=== PATIENT | female | born 1940 | race Caucasian/White ===

== ENCOUNTER 2025-01-21 07:22 | Inpatient (IN) | payer MEDICARE ==
[2025-01-21] VITALS (49 sets, daily range): BP systolic 95–165; BP diastolic 46–109; PULSE 51–86; RESP 12–24; TEMP 36.1–37.2; O2SAT 92–100
[~2025-01-21] VITALS: Ht 162.6 cm; Wt 92.5 kg
[2025-01-21 08:32] LABS: BASOPHILS % 0.7 % (0.0-2.0); DIFFERENTIAL COMMENT 0; EOSINOPHILS % 0.7 % (0.0-5.0); HEMATOCRIT. 22.2 % (36.0-48.0); HEMOGLOBIN. 7.1 g/dL (12.0-16.0); LYMPHOCYTES % 9.1 % (20.0-50.0); MEAN CORPUSCULAR HEMOGLOBIN 23.1 pg (28.0-32.0); MEAN CORPUSCULAR HGB CONC 31.7 g/dL (31.0-37.0); MEAN CORPUSCULAR VOLUME 72.9 fL (81.0-99.0); MEAN PLATELET VOLUME 11.2 fl (7.4-10.4); NEUTROPHILS % 81.5 % (40.0-76.0); PLATELET 226 x1000/uL (130-400); RED BLOOD CELL COUNT 3.05 mill/uL (4.2-5.4); RED CELL DISTRIBUTION WIDTH 18.2 % (11.6-14.6); WHITE BLOOD COUNT 7.5 x1000/uL (4.5-11.0)
[2025-01-21 08:35] LABS: CARBON DIOXIDE 22 mEq/L (21-32); CHLORIDE 110 mEq/L (98-107); POTASSIUM 3.8 mEq/L (3.5-5.1); SODIUM 141 mEq/L (136-145)
[2025-01-21 08:36] LABS: CALCIUM 8.3 mg/dL (8.7-10.4)
[2025-01-21 08:40] LABS: CREATININE 0.7 mg/dL (0.6-1.0)
[2025-01-21 08:41] LABS: GLUCOSE 139 mg/dL (70-105); TROPONIN I HIGH SENSITIVITY 15 ng/L (3.0-34); UREA NITROGEN BLOOD 19 mg/dL (9-23)
[2025-01-21 08:42] LABS: ALANINE AMINOTRANSFERASE 30 IU/L (10-49); ALBUMIN 3.7 g/dL (3.2-4.8); ASPARTATE AMINOTRANSFERASE 39 IU/L (<34)
[2025-01-21 08:43] LABS: BILIRUBIN DIRECT 0.3 mg/dL (<=3.0); PROTEIN TOTAL 6.2 g/dL (6.0-8.3)
[2025-01-21] MEDS ORDERED: THROMBIN (BOVINE) 5000 UNITS/VIAL TOP ONE (10:28)
[2025-01-21] MEDS ORDERED: GENTAMICIN 0.3% OPHTH DROPS 5ML ONE (10:29)
[2025-01-21] MEDS ORDERED: GENTAMICIN SULF 40MG/ML 2ML VIAL ONE (10:29)
[2025-01-21] MEDS ORDERED: LIDOCAINE HCL/EPINEPHRINE 1%-EPI 1:100,000 20ML VIAL ONE (10:29)
[2025-01-21] MEDS ORDERED: BACITRACIN 14GM TUBE TOP ONE (10:29)
[2025-01-21] MEDS ORDERED: DEXAMETHASONE 4MG/ML 1ML VIAL ONE (11:21)
[2025-01-21] MEDS ORDERED: ONDANSETRON HCL 4MG/2ML INJ ONE (11:21)
[2025-01-21] MEDS ORDERED: ETOMIDATE 2MG/ML 10ML VIAL IV ONE (11:21)
[2025-01-21] MEDS ORDERED: ROCURONIUM BROMIDE 10MG/ML VIAL 5ML IV ONE (11:22)
[2025-01-21] MEDS ORDERED: FENTANYL CITRATE/PF 50MCG/ML 2ML VIAL ONE (11:22)
[2025-01-21] MEDS ORDERED: MIDAZOLAM HCL 2 MG/2 ML VIAL ONE ×2 (11:22→11:23)
[2025-01-21] MEDS ORDERED: PROPOFOL 200MG/20ML VIAL IV ONE (11:58)
[2025-01-21 12:14] LABS: INFLUENZA TYPE A Presumptive Negative (Pres. Neg.)
[2025-01-21 12:15] LABS: INFLUENZA TYPE B Presumptive Negative (Pres. Neg.)
[2025-01-21] MEDS ORDERED: NICARDIPINE 100 MG in SODIUM CHLORIDE 0.9% 60 ML IV PRN (13:00)
[2025-01-21] MEDS ORDERED: ACETAMINOPHEN 325MG TABLET PO PRN ×2 (13:15)
[2025-01-21] MEDS ORDERED: NALOXONE HCL 0.4MG/ML VIAL IV PRN (13:15)
[2025-01-21] MEDS ORDERED: IPRATROPIUM/ALBUTEROL 0.5-3(2.5)MG/3ML NEB HHN PRN (13:15)
[2025-01-21] MEDS ORDERED: ONDANSETRON HCL 4MG/2ML INJ IV PRN (13:15)
[2025-01-21] MEDS ORDERED: DOCUSATE SODIUM 100MG CAPSULE PO PRN (13:15)
[2025-01-21] MEDS: MORPHINE SULFATE 2 MG/ML INJ (NOT FOR IM USE) IV PRN (13:35)
[2025-01-21] MEDS: DEXT 5%/LACTATED RINGERS 1,000 ML IV SCH (14:28)
[2025-01-21 15:02] LABS: IRON 19 ug/dL (50-170)
[2025-01-21 15:05] LABS: TOTAL IRON BINDING CAPACITY 261 ug/dl (250-425)
[2025-01-21 15:07] LABS: T4 FREE 1.48 ng/dL (0.89-1.76)
[2025-01-21 15:08] LABS: FERRITIN 6 ng/mL (10-291); VITAMIN B12 SERUM 1231 pg/mL (211-911)
[2025-01-21 16:46] LABS: CREATINE KINASE MB FRACTION 2.6 ng/mL (0.5-3.6)
[2025-01-21] MEDS: NICARDIPINE 100 MG in SODIUM CHLORIDE 0.9% 60 ML IV PRN (16:56)
[2025-01-21] MEDS: CEFAZOLIN 1000MG PREMIX 50 ML IV SCH (20:34)
[2025-01-21] MEDS: LEVETIRACETAM 500MG PREMIX 100 ML IV SCH (20:34)
[2025-01-21] MEDS: ATORVASTATIN CALCIUM 40MG TABLET PO SCH (20:35)
[2025-01-21 21:22] LABS: HEMATOCRIT 23.2 % (36.0-48.0); HEMOGLOBIN 7.4 g/dL (12.0-16.0)
[2025-01-21 22:26] LABS: CREATINE KINASE MB FRACTION 3.1 ng/mL (0.5-3.6)
[2025-01-22] VITALS (104 sets, daily range): BP systolic 111–151; BP diastolic 42–109; PULSE 45–78; RESP 11–31; TEMP 36.7–37.3; O2SAT 93–99
[2025-01-22] MEDS: LEVOTHYROXINE SODIUM 100MCG TABLET PO SCH (05:39)
[2025-01-22 06:30] LABS: CHLORIDE 111 mEq/L (98-107); POTASSIUM 4.2 mEq/L (3.5-5.1); SODIUM 142 mEq/L (136-145)
[2025-01-22 06:31] LABS: CALCIUM 8.1 mg/dL (8.7-10.4); CARBON DIOXIDE 24 mEq/L (21-32)
[2025-01-22 06:36] LABS: CREATININE 0.7 mg/dL (0.6-1.0); GLUCOSE 153 mg/dL (70-105); UREA NITROGEN BLOOD 16 mg/dL (9-23)
[2025-01-22 06:56] LABS: HEMATOCRIT 21.8 % (36.0-48.0); MEAN CORPUSCULAR HEMOGLOBIN 22.8 pg (28.0-32.0); MEAN CORPUSCULAR HGB CONC 31.1 g/dL (31.0-37.0); MEAN CORPUSCULAR VOLUME 73.2 fL (81.0-99.0); PLATELET 213 x1000/uL (130-400); RED BLOOD CELL COUNT 2.97 mill/uL (4.2-5.4); RED CELL DISTRIBUTION WIDTH 18.7 % (11.6-14.6)
[2025-01-22 07:02] LABS: HEMOGLOBIN 6.8 g/dL (12.0-16.0)
[2025-01-22] MEDS: AMLODIPINE 10MG TABLET PO SCH (09:00)
[2025-01-22] MEDS: LOSARTAN 50 MG TABLET PO SCH (09:00)
[2025-01-22] MEDS: PANTOPRAZOLE SODIUM 40 MG/VIAL IV SCH (09:17)
[2025-01-22] MEDS ORDERED: DEXTROSE 50% WATER 50ML SYRINGE IV PRN (13:15)
[2025-01-22] MEDS: CEFAZOLIN 1000MG PREMIX 50 ML IV SCH (15:26)
[2025-01-22 19:20] LABS: HEMATOCRIT 26.2 % (36.0-48.0); HEMOGLOBIN 8.1 g/dL (12.0-16.0); MEAN CORPUSCULAR HEMOGLOBIN 23.4 pg (28.0-32.0); MEAN CORPUSCULAR HGB CONC 30.7 g/dL (31.0-37.0); MEAN CORPUSCULAR VOLUME 76.1 fL (81.0-99.0); PLATELET 270 x1000/uL (130-400); RED BLOOD CELL COUNT 3.45 mill/uL (4.2-5.4); RED CELL DISTRIBUTION WIDTH 19.3 % (11.6-14.6); WHITE BLOOD COUNT 10.3 x1000/uL (4.5-11.0)
[2025-01-23] VITALS (82 sets, daily range): BP systolic 77–157; BP diastolic 40–127; PULSE 50–91; RESP 12–24; TEMP 36.2–36.8; O2SAT 89–100
[2025-01-23] MEDS ORDERED: ACETAMINOPHEN 650MG SUPP PR PRN (09:00)
[2025-01-23] MEDS ORDERED: BACITRACIN 14GM TUBE TOP ONE (09:31)
[2025-01-23] MEDS ORDERED: THROMBIN (BOVINE) 5000 UNITS/VIAL TOP ONE (09:31)
[2025-01-23] MEDS ORDERED: LIDOCAINE HCL/EPINEPHRINE 1%-EPI 1:100,000 20ML VIAL ONE (09:31)
[2025-01-23] MEDS ORDERED: GENTAMICIN SULF 40MG/ML 2ML VIAL ONE (09:32)
[2025-01-23 09:35] LABS: CHLORIDE 111 mEq/L (98-107); POTASSIUM 3.9 mEq/L (3.5-5.1); SODIUM 144 mEq/L (136-145)
[2025-01-23 09:36] LABS: CALCIUM 7.8 mg/dL (8.7-10.4); CARBON DIOXIDE 25 mEq/L (21-32)
[2025-01-23 09:40] LABS: HEMATOCRIT 24.3 % (36.0-48.0); HEMOGLOBIN 7.8 g/dL (12.0-16.0); MEAN CORPUSCULAR HGB CONC 32.1 g/dL (31.0-37.0); MEAN CORPUSCULAR VOLUME 74.6 fL (81.0-99.0); PLATELET 212 x1000/uL (130-400); RED BLOOD CELL COUNT 3.26 mill/uL (4.2-5.4); RED CELL DISTRIBUTION WIDTH 19.2 % (11.6-14.6); WHITE BLOOD COUNT 10.4 x1000/uL (4.5-11.0)
[2025-01-23 09:41] LABS: CREATININE 0.8 mg/dL (0.6-1.0); GLUCOSE 152 mg/dL (70-105); UREA NITROGEN BLOOD 20 mg/dL (9-23)
[2025-01-23 09:43] LABS: ALANINE AMINOTRANSFERASE 186 IU/L (10-49); ALBUMIN 3.6 g/dL (3.2-4.8); ASPARTATE AMINOTRANSFERASE 388 IU/L (<34); BILIRUBIN TOTAL 1.3 mg/dL (0.1-1.0)
[2025-01-23 09:44] LABS: PROTEIN TOTAL 5.9 g/dL (6.0-8.3)
[2025-01-23] MEDS ORDERED: DEXTROSE 50% WATER 50ML SYRINGE IV PRN (09:45)
[2025-01-23] MEDS ORDERED: FENTANYL CITRATE/PF 50MCG/ML 2ML VIAL ONE ×2 (10:26→11:15)
[2025-01-23] MEDS ORDERED: PROPOFOL 200MG/20ML VIAL IV ONE (10:26)
[2025-01-23] MEDS ORDERED: MIDAZOLAM HCL 2 MG/2 ML VIAL ONE ×2 (10:27→11:15)
[2025-01-23] MEDS: BLOOD SUGAR DIAGNOSTIC STRIP TEST SCH (12:00)
[2025-01-23] MEDS: INSULIN LISPRO 100 UNITS/ML SUBCUT SCH (12:43)
[2025-01-23] MEDS: LIDOCAINE HCL 1% 10 MG/ML 10ML VIAL ONE (12:59)
[2025-01-24] VITALS (101 sets, daily range): BP systolic 95–173; BP diastolic 27–130; PULSE 57–104; RESP 16–29; TEMP 36.8–37.4; O2SAT 82–100
[2025-01-24] MEDS: LABETALOL 5MG/ML 4ML INJ IV NR (01:54)
[2025-01-24 06:12] LABS: CHLORIDE 112 mEq/L (98-107); SODIUM 145 mEq/L (136-145)
[2025-01-24 06:13] LABS: CALCIUM 7.9 mg/dL (8.7-10.4); CARBON DIOXIDE 21 mEq/L (21-32)
[2025-01-24 06:16] LABS: HEMATOCRIT 22.9 % (36.0-48.0); HEMOGLOBIN 7.2 g/dL (12.0-16.0); MEAN CORPUSCULAR HEMOGLOBIN 23.4 pg (28.0-32.0); MEAN CORPUSCULAR HGB CONC 31.7 g/dL (31.0-37.0); MEAN CORPUSCULAR VOLUME 73.8 fL (81.0-99.0); PLATELET 230 x1000/uL (130-400); RED CELL DISTRIBUTION WIDTH 19.5 % (11.6-14.6); WHITE BLOOD COUNT 10.2 x1000/uL (4.5-11.0)
[2025-01-24 06:18] LABS: CREATININE 0.9 mg/dL (0.6-1.0); GLUCOSE 132 mg/dL (70-105); UREA NITROGEN BLOOD 24 mg/dL (9-23)
[2025-01-24 06:20] LABS: ALANINE AMINOTRANSFERASE 152 IU/L (10-49); ALBUMIN 3.6 g/dL (3.2-4.8); ASPARTATE AMINOTRANSFERASE 236 IU/L (<34); BILIRUBIN TOTAL 1.2 mg/dL (0.1-1.0)
[2025-01-24 06:21] LABS: PROTEIN TOTAL 6.1 g/dL (6.0-8.3)
[2025-01-24 08:56] LABS: BG DEOXYHEMOGLOBIN 4.2 % (0.0-5.0); BG FRACTION INSPIRED OXYGEN 21; BG HCO3 ACT 18.2 mmol/L (21.0-28.0); BG METHEMOGLOBIN 0.3 % (0.5-1.5); BG OXYGEN SATURATION 95.7 % (94.0-98.0); BG OXYHEMOGLOBIN 94.5 % (94.0-98.0); BG PCO2 23.3 mmHg (32.0-45.0); BG PH 7.511 (7.350-7.450); BG PO2 75.4 mmHg (83.0-108.0); BG SAMPLE SITE RIGHT RADIAL; BG TOTAL HEMOGLOBIN 7.7 g/dL (12.0-16.0); BG VENT MODE ROOM AIR
[2025-01-24] MEDS: HYDRALAZINE 20MG/ML VIAL IV PRN (09:12)
[2025-01-24] MEDS: DEXAMETHASONE 4MG/ML 1ML VIAL IV SCH (09:34)
[2025-01-24] MEDS: IPRATROPIUM/ALBUTEROL 0.5-3(2.5)MG/3ML NEB HHN SCH (12:24)
[2025-01-24] MEDS: HYDRALAZINE 20MG/ML VIAL IV NR (12:26)
[2025-01-24] MEDS ORDERED: LABETALOL 5MG/ML 4ML INJ IV NR (13:15)
[2025-01-24] MEDS: LABETALOL 5MG/ML 4ML INJ IV PRN (15:30)
[2025-01-25] VITALS (112 sets, daily range): BP systolic 89–142; BP diastolic 40–99; PULSE 49–82; RESP 12–28; TEMP 36.6696–37.33632; O2SAT 96–100
[2025-01-25 05:53] LABS: HEMATOCRIT. 21.4 % (36.0-48.0); MEAN CORPUSCULAR HEMOGLOBIN 23.7 pg (28.0-32.0); MEAN CORPUSCULAR HGB CONC 32.6 g/dL (31.0-37.0); MEAN CORPUSCULAR VOLUME 72.7 fL (81.0-99.0); MEAN PLATELET VOLUME 11.9 fl (7.4-10.4); PLATELET 227 x1000/uL (130-400); RED BLOOD CELL COUNT 2.95 mill/uL (4.2-5.4); RED CELL DISTRIBUTION WIDTH 19.2 % (11.6-14.6); WHITE BLOOD COUNT 9.2 x1000/uL (4.5-11.0)
[2025-01-25 06:09] LABS: CALCIUM 7.4 mg/dL (8.7-10.4)
[2025-01-25 06:15] LABS: CREATININE 1.5 mg/dL (0.6-1.0)
[2025-01-25 06:52] LABS: DIFFERENTIAL COMMENT 1
[2025-01-25] MEDS ORDERED: PROPOFOL 10MG/ML 100ML 100 ML IV SCH (09:00)
[2025-01-25 10:16] LABS: BG BASE EXCESS -3.9 mmol/L (-2.0-3.0); BG CARBOXYHEMOGLOBIN 0.8 % (0.5-1.5); BG DEOXYHEMOGLOBIN 2.5 % (0.0-5.0); BG FRACTION INSPIRED OXYGEN 40; BG HCO3 ACT 18.5 mmol/L (21.0-28.0); BG METHEMOGLOBIN 0.2 % (0.5-1.5); BG OXYGEN SATURATION 97.5 % (94.0-98.0); BG OXYHEMOGLOBIN 96.5 % (94.0-98.0); BG PCO2 24.2 mmHg (32.0-45.0); BG PH 7.501 (7.350-7.450); BG SAMPLE SITE RIGHT RADIAL; BG TOTAL HEMOGLOBIN 7.9 g/dL (12.0-16.0); BG VENT MODE VENT - AC
[2025-01-25] MEDS: INSULIN LISPRO 100 UNITS/ML SUBCUT SCH (12:11)
[2025-01-25] MEDS ORDERED: ACETAMINOPHEN 650MG SUPP PR PRN (17:30)
[2025-01-25 17:43] LABS: HEMATOCRIT 25.1 % (36.0-48.0)
[2025-01-25] MEDS: DEXAMETHASONE 4MG/ML 1ML VIAL IV SCH (17:56)
[2025-01-25 22:04] LABS: CLARITY URINE CLOUDY (CLEAR); COLOR URINE DARK YELLOW (YELLOW); GLUCOSE URINE NEGATIVE (NEGATIVE); KETONES URINE TRACE (NEGATIVE); LEUKOCYTE ESTERASE URINE 1+ (NEGATIVE); NITRITE URINE NEGATIVE (NEGATIVE); OCCULT BLOOD URINE NEGATIVE (NEGATIVE); PROTEIN URINE TRACE (NEGATIVE); SPECIFIC GRAVITY URINE 1.019 (1.005-1.030); UROBILINOGEN URINE 0.2 E.U./dL (0.2-1.0)
[2025-01-25 22:27] LABS: BACTERIA URINE 2+
[2025-01-25 22:28] LABS: RBC URINE 0-2 /hpf (0-2); SQUAMOUS EPITHELIAL CELL URINE 1+ /lpf (RARE/1+)
[2025-01-26] VITALS (93 sets, daily range): BP systolic 100–150; BP diastolic 40–108; PULSE 48–88; RESP 9–24; TEMP 36.2–37.2; O2SAT 97–100
[2025-01-26 09:23] LABS: CHLORIDE 116 mEq/L (98-107); SODIUM 146 mEq/L (136-145)
[2025-01-26 09:24] LABS: CALCIUM 6.9 mg/dL (8.7-10.4); CARBON DIOXIDE 17 mEq/L (21-32)
[2025-01-26 09:27] LABS: BG BASE EXCESS -4.2 mmol/L (-2.0-3.0); BG CARBOXYHEMOGLOBIN 0.4 % (0.5-1.5); BG DEOXYHEMOGLOBIN 1.9 % (0.0-5.0); BG FRACTION INSPIRED OXYGEN 30; BG HCO3 ACT 18.4 mmol/L (21.0-28.0); BG METHEMOGLOBIN 0.1 % (0.5-1.5); BG OXYGEN SATURATION 98.1 % (94.0-98.0); BG OXYHEMOGLOBIN 97.6 % (94.0-98.0); BG PCO2 25.5 mmHg (32.0-45.0); BG PH 7.476 (7.350-7.450); BG PO2 108.9 mmHg (83.0-108.0); BG SAMPLE SITE RIGHT RADIAL; BG TOTAL HEMOGLOBIN 9.3 g/dL (12.0-16.0); BG VENT MODE VENT - AC
[2025-01-26 09:29] LABS: CREATININE 1.6 mg/dL (0.6-1.0); GLUCOSE 244 mg/dL (70-105); UREA NITROGEN BLOOD 51 mg/dL (9-23)
[2025-01-26 09:31] LABS: ALANINE AMINOTRANSFERASE 27 IU/L (10-49); ALBUMIN 3.1 g/dL (3.2-4.8); ASPARTATE AMINOTRANSFERASE 99 IU/L (<34); BILIRUBIN TOTAL 1.4 mg/dL (0.1-1.0); PROTEIN TOTAL 5.3 g/dL (6.0-8.3)
[2025-01-26 11:37] LABS: HEMATOCRIT 26.7 % (36.0-48.0); HEMOGLOBIN 8.2 g/dL (12.0-16.0); MEAN CORPUSCULAR HEMOGLOBIN 23.9 pg (28.0-32.0); MEAN CORPUSCULAR HGB CONC 30.9 g/dL (31.0-37.0); MEAN CORPUSCULAR VOLUME 77.5 fL (81.0-99.0); PLATELET 216 x1000/uL (130-400); RED BLOOD CELL COUNT 3.45 mill/uL (4.2-5.4); RED CELL DISTRIBUTION WIDTH 20.4 % (11.6-14.6); WHITE BLOOD COUNT 12.5 x1000/uL (4.5-11.0)
[2025-01-26 13:38] LABS: ANISOCYTOSIS 2+; HYPOCHROMASIA 1+; MICROCYTOSIS 1+; NUCLEATED RED BLOOD CELLS 1 /100 WBC; PLATELET ESTIMATE NORMAL
[2025-01-26] MEDS: INSULIN LISPRO 100 UNITS/ML SUBCUT SCH (23:35)
[2025-01-27] VITALS (104 sets, daily range): BP systolic 102–149; BP diastolic 43–83; PULSE 44–74; RESP 5–27; TEMP 36.8–37.2; O2SAT 96–100
[2025-01-27] MEDS ORDERED: DEXTROSE 50% WATER 50ML SYRINGE IV PRN (07:45)
[2025-01-27 09:06] LABS: HEMATOCRIT. 28.4 % (36.0-48.0); HEMOGLOBIN. 8.9 g/dL (12.0-16.0); MEAN CORPUSCULAR HEMOGLOBIN 23.6 pg (28.0-32.0); MEAN CORPUSCULAR HGB CONC 31.4 g/dL (31.0-37.0); MEAN CORPUSCULAR VOLUME 75.3 fL (81.0-99.0); MEAN PLATELET VOLUME 11.7 fl (7.4-10.4); PLATELET 253 x1000/uL (130-400); RED BLOOD CELL COUNT 3.77 mill/uL (4.2-5.4); RED CELL DISTRIBUTION WIDTH 20.3 % (11.6-14.6); WHITE BLOOD COUNT 16.4 x1000/uL (4.5-11.0)
[2025-01-27 09:11] LABS: CHLORIDE 118 mEq/L (98-107); SODIUM 148 mEq/L (136-145)
[2025-01-27 09:12] LABS: CARBON DIOXIDE 20 mEq/L (21-32)
[2025-01-27 09:13] LABS: CALCIUM 6.7 mg/dL (8.7-10.4)
[2025-01-27 09:15] LABS: DIFFERENTIAL COMMENT 1
[2025-01-27 09:17] LABS: GLUCOSE 230 mg/dL (70-105); UREA NITROGEN BLOOD 54 mg/dL (9-23)
[2025-01-27 09:19] LABS: ALANINE AMINOTRANSFERASE 21 IU/L (10-49); ALBUMIN 3.1 g/dL (3.2-4.8); ASPARTATE AMINOTRANSFERASE 60 IU/L (<34)
[2025-01-27 09:20] LABS: BILIRUBIN TOTAL 1.2 mg/dL (0.1-1.0); PROTEIN TOTAL 5.3 g/dL (6.0-8.3)
[2025-01-27 09:38] LABS: CREATININE 1.3 mg/dL (0.6-1.0)
[2025-01-27 09:48] LABS: ANISOCYTOSIS 2+; MICROCYTOSIS 1+; PLATELET ESTIMATE NORMAL
[2025-01-27 09:56] LABS: BG BASE EXCESS -4.2 mmol/L (-2.0-3.0); BG CARBOXYHEMOGLOBIN 0.2 % (0.5-1.5); BG DEOXYHEMOGLOBIN 2.3 % (0.0-5.0); BG FRACTION INSPIRED OXYGEN 30; BG HCO3 ACT 18.6 mmol/L (21.0-28.0); BG METHEMOGLOBIN 0.3 % (0.5-1.5); BG OXYGEN SATURATION 97.7 % (94.0-98.0); BG OXYHEMOGLOBIN 97.2 % (94.0-98.0); BG PCO2 26.2 mmHg (32.0-45.0); BG PH 7.469 (7.350-7.450); BG SAMPLE SITE RIGHT RADIAL; BG TOTAL HEMOGLOBIN 8.9 g/dL (12.0-16.0); BG VENT MODE VENT - AC
[2025-01-27] MEDS: INSULIN LISPRO 100 UNITS/ML SUBCUT SCH (12:08)
[2025-01-27 18:00] LABS: CLARITY URINE CLEAR (CLEAR); COLOR URINE YELLOW (YELLOW); GLUCOSE URINE NEGATIVE (NEGATIVE); KETONES URINE NEGATIVE (NEGATIVE); LEUKOCYTE ESTERASE URINE NEGATIVE (NEGATIVE); NITRITE URINE NEGATIVE (NEGATIVE); OCCULT BLOOD URINE NEGATIVE (NEGATIVE); PH URINE 5.5 (4.5-8.0); PROTEIN URINE NEGATIVE (NEGATIVE); SPECIFIC GRAVITY URINE 1.016 (1.005-1.030); UROBILINOGEN URINE 0.2 E.U./dL (0.2-1.0)
[2025-01-28] VITALS (72 sets, daily range): BP systolic 79–146; BP diastolic 49–88; PULSE 46–65; RESP 10–33; TEMP 36.7–36.9; O2SAT 97–100
[2025-01-28] MEDS: DOCUSATE SODIUM SUGAR FREE 100MG/10ML UDC NG PRN (06:39)
[2025-01-28] MEDS: SODIUM CHLORIDE 10% FOR INH 15ML NEB INH SCH (09:05)
[2025-01-28 09:44] LABS: BG BASE EXCESS -3.7 mmol/L (-2.0-3.0); BG CARBOXYHEMOGLOBIN 0.3 % (0.5-1.5); BG DEOXYHEMOGLOBIN 1.7 % (0.0-5.0); BG FRACTION INSPIRED OXYGEN 30; BG HCO3 ACT 18.8 mmol/L (21.0-28.0); BG OXYGEN SATURATION 98.3 % (94.0-98.0); BG PCO2 25.5 mmHg (32.0-45.0); BG PH 7.485 (7.350-7.450); BG PO2 115.5 mmHg (83.0-108.0); BG SAMPLE SITE RIGHT RADIAL; BG TOTAL HEMOGLOBIN 9.3 g/dL (12.0-16.0); BG TOTAL RESPIRATORY RATE 18 b/min; BG VENT MODE VENT - AC
[2025-01-28 11:26] LABS: HEMATOCRIT 28.4 % (36.0-48.0); HEMOGLOBIN 8.8 g/dL (12.0-16.0); MEAN CORPUSCULAR HEMOGLOBIN 23.7 pg (28.0-32.0); MEAN CORPUSCULAR HGB CONC 30.9 g/dL (31.0-37.0); MEAN CORPUSCULAR VOLUME 76.7 fL (81.0-99.0); PLATELET 233 x1000/uL (130-400); RED CELL DISTRIBUTION WIDTH 20.6 % (11.6-14.6); WHITE BLOOD COUNT 17.2 x1000/uL (4.5-11.0)
[2025-01-28 11:43] LABS: POTASSIUM 3.9 mEq/L (3.5-5.1)
[2025-01-28 11:45] LABS: CALCIUM 6.9 mg/dL (8.7-10.4)
[2025-01-28] MEDS: PIPERACILLIN/TAZO 3.375G/50ML 50 ML IV SCH (15:30)
[2025-01-29] VITALS (94 sets, daily range): BP systolic 110–146; BP diastolic 27–70; PULSE 55–75; RESP 10–32; TEMP 36.6–37.1; O2SAT 98–100
[2025-01-29 06:10] LABS: HEMATOCRIT. 33.9 % (36.0-48.0); HEMOGLOBIN. 10.3 g/dL (12.0-16.0); MEAN CORPUSCULAR HEMOGLOBIN 23.8 pg (28.0-32.0); MEAN CORPUSCULAR HGB CONC 30.5 g/dL (31.0-37.0); MEAN CORPUSCULAR VOLUME 78.2 fL (81.0-99.0); MEAN PLATELET VOLUME 11.6 fl (7.4-10.4); PLATELET 228 x1000/uL (130-400); RED BLOOD CELL COUNT 4.34 mill/uL (4.2-5.4); RED CELL DISTRIBUTION WIDTH 21.4 % (11.6-14.6); WHITE BLOOD COUNT 23.7 x1000/uL (4.5-11.0)
[2025-01-29 06:50] LABS: CALCIUM 7.1 mg/dL (8.7-10.4); POTASSIUM 4.1 mEq/L (3.5-5.1)
[2025-01-29 07:12] LABS: DIFFERENTIAL COMMENT 1
[2025-01-29] MEDS: GUAIFENESIN 200MG/10ML SUGAR FREE UDC PO SCH (12:48)
[2025-01-29 19:49] LABS: ANISOCYTOSIS 2+; HYPOCHROMASIA 1+; MICROCYTOSIS 1+; PLATELET ESTIMATE NORMAL
[2025-01-30] VITALS (81 sets, daily range): BP systolic 113–154; BP diastolic 42–78; PULSE 55–79; RESP 0–26; TEMP 36.6–37.3; O2SAT 98–100
[2025-01-30 05:20] LABS: HEMATOCRIT. 33.4 % (36.0-48.0); HEMOGLOBIN. 9.9 g/dL (12.0-16.0); MEAN CORPUSCULAR HEMOGLOBIN 24.2 pg (28.0-32.0); MEAN CORPUSCULAR HGB CONC 29.5 g/dL (31.0-37.0); MEAN PLATELET VOLUME 12.5 fl (7.4-10.4); PLATELET 121 x1000/uL (130-400); RED BLOOD CELL COUNT 4.08 mill/uL (4.2-5.4)
[2025-01-30 05:49] LABS: CHLORIDE 118 mEq/L (98-107); POTASSIUM 3.8 mEq/L (3.5-5.1); SODIUM 150 mEq/L (136-145)
[2025-01-30 05:51] LABS: CARBON DIOXIDE 20 mEq/L (21-32)
[2025-01-30 05:52] LABS: CALCIUM 7.5 mg/dL (8.7-10.4)
[2025-01-30 05:56] LABS: CREATININE 1.1 mg/dL (0.6-1.0); GLUCOSE 248 mg/dL (70-105)
[2025-01-30 05:57] LABS: ALANINE AMINOTRANSFERASE 21 IU/L (10-49); UREA NITROGEN BLOOD 37 mg/dL (9-23)
[2025-01-30 05:58] LABS: ALBUMIN 2.8 g/dL (3.2-4.8); ASPARTATE AMINOTRANSFERASE 44 IU/L (<34)
[2025-01-30 05:59] LABS: BILIRUBIN TOTAL 0.9 mg/dL (0.1-1.0); PHOSPHORUS 2.7 mg/dL (2.5-4.9)
[2025-01-30 06:22] LABS: DIFFERENTIAL COMMENT 1
[2025-01-30 09:27] LABS: BG BASE EXCESS -3.1 mmol/L (-2.0-3.0); BG CARBOXYHEMOGLOBIN 0.2 % (0.5-1.5); BG DEOXYHEMOGLOBIN 1.4 % (0.0-5.0); BG FRACTION INSPIRED OXYGEN 30; BG HCO3 ACT 18.9 mmol/L (21.0-28.0); BG METHEMOGLOBIN 0.3 % (0.5-1.5); BG OXYGEN SATURATION 98.6 % (94.0-98.0); BG OXYHEMOGLOBIN 98.1 % (94.0-98.0); BG PCO2 24.6 mmHg (32.0-45.0); BG PH 7.504 (7.350-7.450); BG PO2 128.8 mmHg (83.0-108.0); BG SAMPLE SITE LEFT RADIAL; BG TOTAL RESPIRATORY RATE 24 b/min; BG VENT MODE VENT - AC
[2025-01-30] MEDS: CALCIUM 1250MG TABLET (500MG ELEMENTAL CALCIUM) PO SCH (09:30)
[2025-01-30] MEDS: MEROPENEM 1GM/50ML DUPLEX 50 ML IV SCH (09:48)
[2025-01-30] MEDS ORDERED: MEROPENEM 1G/100ML 100 ML IV SCH (14:00)
[2025-01-30 14:23] LABS: ANISOCYTOSIS 2+; PLATELET ESTIMATE NORMAL
[2025-01-30] MEDS: VANCOMYCIN 1.5GM/250ML IV NR (17:16)
[2025-01-30] MEDS: INSULIN GLARGINE 100 UNITS/ML SUBCUT SCH (21:23)
[2025-01-30] MEDS: MEROPENEM 2,000 MG in SODIUM CHLORIDE 0.9% 60 ML IV SCH (21:47)
[2025-01-31] VITALS (88 sets, daily range): BP systolic 81–168; BP diastolic 46–82; PULSE 49–87; RESP 0–26; TEMP 35.9–37.1; O2SAT 89–100
[2025-01-31] MEDS: VANCOMYCIN 125MG/2.5ML ORAL SYR PO SCH (05:46)
[2025-01-31 06:29] LABS: POTASSIUM 3.9 mEq/L (3.5-5.1)
[2025-01-31 06:31] LABS: CALCIUM 7.4 mg/dL (8.7-10.4)
[2025-01-31 06:35] LABS: CREATININE 0.9 mg/dL (0.6-1.0)
[2025-01-31 06:45] LABS: HEMATOCRIT. 29.6 % (36.0-48.0); HEMOGLOBIN. 9.2 g/dL (12.0-16.0); MEAN CORPUSCULAR HEMOGLOBIN 24.2 pg (28.0-32.0); MEAN CORPUSCULAR HGB CONC 30.9 g/dL (31.0-37.0); MEAN CORPUSCULAR VOLUME 78.2 fL (81.0-99.0); MEAN PLATELET VOLUME 12.1 fl (7.4-10.4); PLATELET 200 x1000/uL (130-400); RED BLOOD CELL COUNT 3.79 mill/uL (4.2-5.4); RED CELL DISTRIBUTION WIDTH 21.3 % (11.6-14.6); WHITE BLOOD COUNT 20.2 x1000/uL (4.5-11.0)
[2025-01-31 06:57] LABS: DIFFERENTIAL COMMENT 1
[2025-01-31 09:25] LABS: BG CARBOXYHEMOGLOBIN 0.3 % (0.5-1.5); BG DEOXYHEMOGLOBIN 0.7 % (0.0-5.0); BG FRACTION INSPIRED OXYGEN 40; BG HCO3 ACT 21.7 mmol/L (21.0-28.0); BG METHEMOGLOBIN 0.3 % (0.5-1.5); BG OXYGEN SATURATION 99.3 % (94.0-98.0); BG OXYHEMOGLOBIN 98.7 % (94.0-98.0); BG PCO2 28.8 mmHg (32.0-45.0); BG PH 7.495 (7.350-7.450); BG PO2 158.9 mmHg (83.0-108.0); BG SAMPLE SITE LEFT RADIAL; BG TOTAL HEMOGLOBIN 9.1 g/dL (12.0-16.0); BG VENT MODE VENT - SIMV
[2025-01-31] MEDS ORDERED: LIDOCAINE HCL/EPINEPHRINE 1%-EPI 1:100,000 20ML VIAL ONE (11:41)
[2025-01-31 13:24] LABS: ANISOCYTOSIS 3+; HYPOCHROMASIA 1+; MICROCYTOSIS 1+
[2025-01-31 13:25] LABS: PLATELET ESTIMATE NORMAL
[2025-01-31] MEDS ORDERED: NOREPINEPHRINE 8MG/250ML PMX 250 ML IV PRN (14:00)
[2025-01-31] MEDS: VANCOMYCIN 750MG/150ML (BAXTER) IV SCH (14:39)
[2025-01-31] MEDS ORDERED: ACETAMINOPHEN 650MG/20.3ML UDC PO PRN (20:45)
[2025-01-31] MEDS: MORPHINE SULFATE 4 MG/ML INJ (FOR IV/IM USE) IV PRN (21:06)
[2025-02-01] VITALS (100 sets, daily range): BP systolic 113–163; BP diastolic 46–75; PULSE 43–72; RESP 12–22; TEMP 36.1–37.1; O2SAT 99–100
[2025-02-01 00:59] LABS: PHOSPHORUS 2.6 mg/dL (2.5-4.9)
[2025-02-01 01:08] LABS: HEMATOCRIT 31.2 % (36.0-48.0); HEMOGLOBIN 9.6 g/dL (12.0-16.0); MEAN CORPUSCULAR HGB CONC 30.9 g/dL (31.0-37.0); MEAN CORPUSCULAR VOLUME 77.5 fL (81.0-99.0); PLATELET 221 x1000/uL (130-400); RED BLOOD CELL COUNT 4.02 mill/uL (4.2-5.4); RED CELL DISTRIBUTION WIDTH 21.3 % (11.6-14.6); WHITE BLOOD COUNT 16.9 x1000/uL (4.5-11.0)
[2025-02-01 06:07] LABS: CARBON DIOXIDE 24 mEq/L (21-32); CHLORIDE 114 mEq/L (98-107); POTASSIUM 4.2 mEq/L (3.5-5.1); SODIUM 147 mEq/L (136-145)
[2025-02-01 06:08] LABS: CALCIUM 7.6 mg/dL (8.7-10.4)
[2025-02-01 06:13] LABS: CREATININE 0.8 mg/dL (0.6-1.0); GLUCOSE 201 mg/dL (70-105); UREA NITROGEN BLOOD 23 mg/dL (9-23)
[2025-02-01 06:26] LABS: HEMATOCRIT. 29.4 % (36.0-48.0); HEMOGLOBIN. 9.2 g/dL (12.0-16.0); MEAN CORPUSCULAR HEMOGLOBIN 24.2 pg (28.0-32.0); MEAN CORPUSCULAR HGB CONC 31.2 g/dL (31.0-37.0); MEAN CORPUSCULAR VOLUME 77.6 fL (81.0-99.0); RED BLOOD CELL COUNT 3.78 mill/uL (4.2-5.4)
[2025-02-01 07:37] LABS: DIFFERENTIAL COMMENT 1
[2025-02-01 09:33] LABS: BG BASE EXCESS -2.4 mmol/L (-2.0-3.0); BG DEOXYHEMOGLOBIN 0.7 % (0.0-5.0); BG FRACTION INSPIRED OXYGEN 40; BG HCO3 ACT 21.1 mmol/L (21.0-28.0); BG METHEMOGLOBIN 0.1 % (0.5-1.5); BG OXYGEN SATURATION 99.3 % (94.0-98.0); BG OXYHEMOGLOBIN 99.2 % (94.0-98.0); BG PCO2 31.6 mmHg (32.0-45.0); BG PH 7.443 (7.350-7.450); BG PO2 172.4 mmHg (83.0-108.0); BG SAMPLE SITE RIGHT RADIAL; BG TOTAL HEMOGLOBIN 9.4 g/dL (12.0-16.0); BG VENT MODE VENT - SIMV
[2025-02-01 16:34] LABS: ANISOCYTOSIS 2+; PLATELET ESTIMATE NORMAL
[2025-02-01 16:35] LABS: HYPOCHROMASIA 1+; MICROCYTOSIS 1+
[2025-02-01 16:36] LABS: MEAN PLATELET VOLUME 11.8 fl (7.4-10.4); PLATELET 193 x1000/uL (130-400)
[2025-02-02] VITALS (100 sets, daily range): BP systolic 122–170; BP diastolic 44–126; PULSE 55–86; RESP 11–22; TEMP 36.4–36.8; O2SAT 98–100
[2025-02-02 06:22] LABS: HEMATOCRIT. 29.3 % (36.0-48.0); HEMOGLOBIN. 9.1 g/dL (12.0-16.0); MEAN CORPUSCULAR HEMOGLOBIN 23.9 pg (28.0-32.0); MEAN CORPUSCULAR HGB CONC 31.1 g/dL (31.0-37.0); MEAN CORPUSCULAR VOLUME 76.7 fL (81.0-99.0); MEAN PLATELET VOLUME 11.7 fl (7.4-10.4); PLATELET 201 x1000/uL (130-400); RED BLOOD CELL COUNT 3.82 mill/uL (4.2-5.4); RED CELL DISTRIBUTION WIDTH 21.2 % (11.6-14.6)
[2025-02-02 06:33] LABS: CARBON DIOXIDE 24 mEq/L (21-32); CHLORIDE 113 mEq/L (98-107); POTASSIUM 4.3 mEq/L (3.5-5.1); SODIUM 145 mEq/L (136-145)
[2025-02-02 06:39] LABS: CREATININE 0.7 mg/dL (0.6-1.0); GLUCOSE 200 mg/dL (70-105); UREA NITROGEN BLOOD 19 mg/dL (9-23)
[2025-02-02 06:47] LABS: DIFFERENTIAL COMMENT 1
[2025-02-02 12:46] LABS: ANISOCYTOSIS 2+; MICROCYTOSIS 1+; PLATELET ESTIMATE NORMAL
[2025-02-02] MEDS: MEROPENEM 2,000 MG in SODIUM CHLORIDE 0.9% 60 ML IV SCH (18:01)
[2025-02-02] MEDS: LACTOBACILLUS GG CAPSULE GT SCH (18:59)
[2025-02-03] VITALS (73 sets, daily range): BP systolic 122–164; BP diastolic 49–84; PULSE 54–75; RESP 10–21; TEMP 36.4–37.1; O2SAT 99–100
[2025-02-03 06:55] LABS: HEMATOCRIT. 29.6 % (36.0-48.0); HEMOGLOBIN. 9.2 g/dL (12.0-16.0); MEAN CORPUSCULAR HEMOGLOBIN 23.9 pg (28.0-32.0); MEAN CORPUSCULAR HGB CONC 30.9 g/dL (31.0-37.0); MEAN CORPUSCULAR VOLUME 77.5 fL (81.0-99.0); MEAN PLATELET VOLUME 12.2 fl (7.4-10.4); PLATELET 205 x1000/uL (130-400); RED BLOOD CELL COUNT 3.83 mill/uL (4.2-5.4); RED CELL DISTRIBUTION WIDTH 20.9 % (11.6-14.6); WHITE BLOOD COUNT 13.3 x1000/uL (4.5-11.0)
[2025-02-03 07:09] LABS: CARBON DIOXIDE 26 mEq/L (21-32); CHLORIDE 111 mEq/L (98-107); POTASSIUM 4.6 mEq/L (3.5-5.1); SODIUM 145 mEq/L (136-145)
[2025-02-03 07:10] LABS: CALCIUM 7.8 mg/dL (8.7-10.4)
[2025-02-03 07:14] LABS: CREATININE 0.6 mg/dL (0.6-1.0); GLUCOSE 178 mg/dL (70-105)
[2025-02-03 07:15] LABS: UREA NITROGEN BLOOD 16 mg/dL (9-23)
[2025-02-03 07:16] LABS: ALANINE AMINOTRANSFERASE 105 IU/L (10-49); ALBUMIN 2.6 g/dL (3.2-4.8); ASPARTATE AMINOTRANSFERASE 197 IU/L (<34); BILIRUBIN DIRECT 0.2 mg/dL (<=3.0)
[2025-02-03 07:17] LABS: BILIRUBIN TOTAL 0.5 mg/dL (0.1-1.0); PHOSPHORUS 2.7 mg/dL (2.5-4.9); PROTEIN TOTAL 4.8 g/dL (6.0-8.3)
[2025-02-03 07:20] LABS: DIFFERENTIAL COMMENT 1
[2025-02-03 08:55] LABS: BG BASE EXCESS 1.3 mmol/L (-2.0-3.0); BG CARBOXYHEMOGLOBIN 1.8 % (0.5-1.5); BG DEOXYHEMOGLOBIN 0.7 % (0.0-5.0); BG FRACTION INSPIRED OXYGEN 40; BG HCO3 ACT 24.3 mmol/L (21.0-28.0); BG METHEMOGLOBIN 0.3 % (0.5-1.5); BG OXYGEN SATURATION 99.3 % (94.0-98.0); BG OXYHEMOGLOBIN 97.2 % (94.0-98.0); BG PCO2 31.2 mmHg (32.0-45.0); BG PO2 149.8 mmHg (83.0-108.0); BG SAMPLE SITE LEFT RADIAL; BG TOTAL HEMOGLOBIN 6.4 g/dL (12.0-16.0); BG VENT MODE VENT - SIMV
[2025-02-03 11:03] LABS: ANISOCYTOSIS 2+; MICROCYTOSIS 1+; NUCLEATED RED BLOOD CELLS 1 /100 WBC; PLATELET ESTIMATE NORMAL
[2025-02-03 18:31] LABS: HEMATOCRIT 24.2 % (36.0-48.0); HEMOGLOBIN 7.5 g/dL (12.0-16.0)
[2025-02-04] VITALS (23 sets, daily range): BP systolic 122–171; BP diastolic 50–76; PULSE 55–74; RESP 12–18; TEMP 36.6–37.1; O2SAT 99–100
[2025-02-04 06:29] LABS: HEMATOCRIT. 27.9 % (36.0-48.0); HEMOGLOBIN. 8.7 g/dL (12.0-16.0); MEAN CORPUSCULAR HEMOGLOBIN 23.8 pg (28.0-32.0); MEAN CORPUSCULAR HGB CONC 31.3 g/dL (31.0-37.0); MEAN CORPUSCULAR VOLUME 76.1 fL (81.0-99.0); MEAN PLATELET VOLUME 11.6 fl (7.4-10.4); PLATELET 160 x1000/uL (130-400); RED BLOOD CELL COUNT 3.67 mill/uL (4.2-5.4); WHITE BLOOD COUNT 12.8 x1000/uL (4.5-11.0)
[2025-02-04 06:50] LABS: CHLORIDE 106 mEq/L (98-107); POTASSIUM 4.3 mEq/L (3.5-5.1)
[2025-02-04 06:51] LABS: CARBON DIOXIDE 27 mEq/L (21-32); SODIUM 142 mEq/L (136-145)
[2025-02-04 06:56] LABS: CREATININE 0.6 mg/dL (0.6-1.0); GLUCOSE 132 mg/dL (70-105)
[2025-02-04 06:57] LABS: UREA NITROGEN BLOOD 14 mg/dL (9-23)
[2025-02-04 07:28] LABS: DIFFERENTIAL COMMENT 1
[2025-02-04] MEDS: LOSARTAN 25 MG TABLET PO SCH (11:17)
[2025-02-04 12:06] LABS: ANISOCYTOSIS 3+; MICROCYTOSIS 1+; PLATELET ESTIMATE NORMAL
[2025-02-05] VITALS (23 sets, daily range): BP systolic 112–153; BP diastolic 49–79; PULSE 55–99; RESP 13–26; TEMP 36.6–37.5; O2SAT 97–100
[2025-02-05 07:52] LABS: CARBON DIOXIDE 27 mEq/L (21-32); CHLORIDE 102 mEq/L (98-107); POTASSIUM 4.2 mEq/L (3.5-5.1); SODIUM 138 mEq/L (136-145)
[2025-02-05 07:53] LABS: CALCIUM 8.2 mg/dL (8.7-10.4)
[2025-02-05 07:56] LABS: HEMATOCRIT. 29.1 % (36.0-48.0); HEMOGLOBIN. 9.4 g/dL (12.0-16.0); MEAN CORPUSCULAR HEMOGLOBIN 24.1 pg (28.0-32.0); MEAN CORPUSCULAR HGB CONC 32.2 g/dL (31.0-37.0); MEAN CORPUSCULAR VOLUME 74.8 fL (81.0-99.0); MEAN PLATELET VOLUME 12.7 fl (7.4-10.4); PLATELET 174 x1000/uL (130-400); RED BLOOD CELL COUNT 3.89 mill/uL (4.2-5.4); RED CELL DISTRIBUTION WIDTH 21.1 % (11.6-14.6); WHITE BLOOD COUNT 11.4 x1000/uL (4.5-11.0)
[2025-02-05 07:58] LABS: CREATININE 0.6 mg/dL (0.6-1.0); GLUCOSE 135 mg/dL (70-105); UREA NITROGEN BLOOD 14 mg/dL (9-23)
[2025-02-05 08:51] LABS: DIFFERENTIAL COMMENT 1
[2025-02-05 11:58] LABS: BG BASE EXCESS 3.9 mmol/L (-2.0-3.0); BG CARBOXYHEMOGLOBIN 0.4 % (0.5-1.5); BG DEOXYHEMOGLOBIN 2.6 % (0.0-5.0); BG FRACTION INSPIRED OXYGEN 30; BG HCO3 ACT 26.4 mmol/L (21.0-28.0); BG OXYGEN SATURATION 97.4 % (94.0-98.0); BG PCO2 31.9 mmHg (32.0-45.0); BG PH 7.536 (7.350-7.450); BG PO2 90.3 mmHg (83.0-108.0); BG SAMPLE SITE RIGHT RADIAL; BG TOTAL HEMOGLOBIN 9.5 g/dL (12.0-16.0); BG VENT MODE VENT - CPAP
[2025-02-05 13:08] LABS: SACCHAROMYCES CEREVISIAE IGG <20.0 Units (0.0-24.9); SACCHAROMYCES CEREVISIAE IGM <20.0 Units (0.0-24.9)
[2025-02-05] MEDS: HYDROCHLOROTHIAZIDE 25MG TABLET PO SCH (13:53)
[2025-02-05 19:06] LABS: ATYPICAL pANCA <1:20 titer (Neg:<1:20)
[2025-02-06] VITALS (26 sets, daily range): BP systolic 117–136; BP diastolic 46–67; PULSE 57–70; RESP 11–19; TEMP 36.3–37.4; O2SAT 97–100
[2025-02-06 07:27] LABS: HEMATOCRIT. 26.8 % (36.0-48.0); HEMOGLOBIN. 8.6 g/dL (12.0-16.0); MEAN CORPUSCULAR HGB CONC 32.2 g/dL (31.0-37.0); MEAN CORPUSCULAR VOLUME 74.6 fL (81.0-99.0); MEAN PLATELET VOLUME 11.9 fl (7.4-10.4); PLATELET 149 x1000/uL (130-400); RED BLOOD CELL COUNT 3.59 mill/uL (4.2-5.4); RED CELL DISTRIBUTION WIDTH 21.1 % (11.6-14.6); WHITE BLOOD COUNT 8.2 x1000/uL (4.5-11.0)
[2025-02-06 07:34] LABS: CARBON DIOXIDE 29 mEq/L (21-32); CHLORIDE 102 mEq/L (98-107); POTASSIUM 4.1 mEq/L (3.5-5.1); SODIUM 137 mEq/L (136-145)
[2025-02-06 07:35] LABS: ADD RBC MORPHOLOGY YES; CALCIUM 7.8 mg/dL (8.7-10.4); DIFFERENTIAL COMMENT 1
[2025-02-06 07:39] LABS: CREATININE 0.6 mg/dL (0.6-1.0)
[2025-02-06 07:40] LABS: GLUCOSE 178 mg/dL (70-105); UREA NITROGEN BLOOD 16 mg/dL (9-23)
[2025-02-06 14:46] LABS: ANISOCYTOSIS 2+
[2025-02-06 14:47] LABS: HYPOCHROMASIA 1+; PLATELET ESTIMATE NORMAL
[2025-02-06 14:50] LABS: ANISOCYTOSIS 3+; MICROCYTOSIS 1+; PLATELET ESTIMATE NORMAL
[2025-02-07] VITALS (22 sets, daily range): BP systolic 118–151; BP diastolic 48–75; PULSE 55–70; RESP 13–19; TEMP 36.7–36.9; O2SAT 97–100
[2025-02-08] VITALS (22 sets, daily range): BP systolic 118–147; BP diastolic 48–61; PULSE 55–66; RESP 14–25; TEMP 36.8–37; O2SAT 98–100
[2025-02-08 08:46] LABS: HEMATOCRIT. 25.2 % (36.0-48.0); HEMOGLOBIN. 8.1 g/dL (12.0-16.0); MEAN CORPUSCULAR HEMOGLOBIN 24.1 pg (28.0-32.0); MEAN CORPUSCULAR HGB CONC 32.1 g/dL (31.0-37.0); MEAN PLATELET VOLUME 11.8 fl (7.4-10.4); PLATELET 131 x1000/uL (130-400); RED BLOOD CELL COUNT 3.37 mill/uL (4.2-5.4); RED CELL DISTRIBUTION WIDTH 20.9 % (11.6-14.6); WHITE BLOOD COUNT 8.1 x1000/uL (4.5-11.0)
[2025-02-08 09:11] LABS: DIFFERENTIAL COMMENT 1
[2025-02-09] VITALS (22 sets, daily range): BP systolic 103–145; BP diastolic 47–65; PULSE 55–68; RESP 10–25; TEMP 36.8–37.2; O2SAT 98–100
[2025-02-09 07:56] LABS: HEMATOCRIT. 26.1 % (36.0-48.0); HEMOGLOBIN. 8.2 g/dL (12.0-16.0); MEAN CORPUSCULAR HEMOGLOBIN 23.6 pg (28.0-32.0); MEAN CORPUSCULAR HGB CONC 31.3 g/dL (31.0-37.0); MEAN CORPUSCULAR VOLUME 75.5 fL (81.0-99.0); MEAN PLATELET VOLUME 10.8 fl (7.4-10.4); PLATELET 126 x1000/uL (130-400); RED BLOOD CELL COUNT 3.46 mill/uL (4.2-5.4); RED CELL DISTRIBUTION WIDTH 21.8 % (11.6-14.6); WHITE BLOOD COUNT 7.9 x1000/uL (4.5-11.0)
[2025-02-09 09:09] LABS: DIFFERENTIAL COMMENT 1
[2025-02-09 12:52] LABS: CHLORIDE 99 mEq/L (98-107); POTASSIUM 3.8 mEq/L (3.5-5.1); SODIUM 136 mEq/L (136-145)
[2025-02-09 12:53] LABS: CARBON DIOXIDE 29 mEq/L (21-32)
[2025-02-09 12:54] LABS: CALCIUM 7.8 mg/dL (8.7-10.4)
[2025-02-09 12:58] LABS: CREATININE 0.6 mg/dL (0.6-1.0); GLUCOSE 140 mg/dL (70-105)
[2025-02-09 12:59] LABS: UREA NITROGEN BLOOD 15 mg/dL (9-23)
[2025-02-09 16:47] LABS: ANISOCYTOSIS 2+; HYPOCHROMASIA 1+; MICROCYTOSIS 1+; PLATELET ESTIMATE DECREASED
[2025-02-10] VITALS (24 sets, daily range): BP systolic 101–142; BP diastolic 50–64; PULSE 52–66; RESP 14–18; TEMP 36.8–37.6; O2SAT 96–100
[2025-02-10 00:06] LABS: PLATELET ESTIMATE NORMAL
[2025-02-10 00:07] LABS: ANISOCYTOSIS 1+; HYPOCHROMASIA 1+; MICROCYTOSIS 1+
[2025-02-10 07:27] LABS: BASOPHILS % 0.7 % (0.0-2.0); DIFFERENTIAL COMMENT 0; EOSINOPHILS % 0.8 % (0.0-5.0); HEMATOCRIT. 26.6 % (36.0-48.0); HEMOGLOBIN. 8.6 g/dL (12.0-16.0); LYMPHOCYTES % 10.1 % (20.0-50.0); MEAN CORPUSCULAR HEMOGLOBIN 24.1 pg (28.0-32.0); MEAN CORPUSCULAR HGB CONC 32.2 g/dL (31.0-37.0); MEAN PLATELET VOLUME 11.3 fl (7.4-10.4); MONOCYTES % 9.6 % (2.0-8.0); NEUTROPHILS % 78.8 % (40.0-76.0); PLATELET 137 x1000/uL (130-400); RED BLOOD CELL COUNT 3.54 mill/uL (4.2-5.4); RED CELL DISTRIBUTION WIDTH 21.3 % (11.6-14.6); WHITE BLOOD COUNT 7.3 x1000/uL (4.5-11.0)
[2025-02-11] VITALS (24 sets, daily range): BP systolic 113–154; BP diastolic 48–74; PULSE 52–69; RESP 14–19; TEMP 36.7–37.4; O2SAT 33–100
[2025-02-11 07:31] LABS: BASOPHILS % 0.4 % (0.0-2.0); DIFFERENTIAL COMMENT 0; EOSINOPHILS % 0.9 % (0.0-5.0); HEMATOCRIT. 26.4 % (36.0-48.0); HEMOGLOBIN. 8.6 g/dL (12.0-16.0); LYMPHOCYTES % 10.1 % (20.0-50.0); MEAN CORPUSCULAR HEMOGLOBIN 24.5 pg (28.0-32.0); MEAN CORPUSCULAR HGB CONC 32.6 g/dL (31.0-37.0); MEAN CORPUSCULAR VOLUME 75.2 fL (81.0-99.0); MEAN PLATELET VOLUME 11.9 fl (7.4-10.4); MONOCYTES % 9.6 % (2.0-8.0); PLATELET 150 x1000/uL (130-400); RED BLOOD CELL COUNT 3.51 mill/uL (4.2-5.4); RED CELL DISTRIBUTION WIDTH 21.7 % (11.6-14.6)
[2025-02-11 07:36] LABS: CALCIUM 8.1 mg/dL (8.7-10.4); CARBON DIOXIDE 28 mEq/L (21-32); CHLORIDE 99 mEq/L (98-107); POTASSIUM 3.8 mEq/L (3.5-5.1); SODIUM 135 mEq/L (136-145)
[2025-02-11 07:41] LABS: CREATININE 0.5 mg/dL (0.6-1.0)
[2025-02-11 07:42] LABS: GLUCOSE 133 mg/dL (70-105); UREA NITROGEN BLOOD 14 mg/dL (9-23)
[2025-02-11] MEDS ORDERED: CALC-26 PO (12:24)
[2025-02-11] MEDS ORDERED: LIP40 PO (12:24)
[2025-02-11] MEDS ORDERED: LEVO100T9 PO (12:24)
[2025-02-11] MEDS ORDERED: LOSA25TA26 PO (12:24)
[2025-02-11] MEDS ORDERED: LANTUSUD SUBCUT (12:24)
[2025-02-11] MEDS ORDERED: KEPP500 MT (12:24)
[2025-02-11] MEDS ORDERED: AMLO10TA80 PO (12:24)
[2025-02-11] MEDS ORDERED: INSLIS SUBCUT (12:24)
== END 2025-02-11 21:09 | disposition short-term general hospital (02) | DRG 3 ==
LOC: ER 07:46 → MICUNO 12:47 → EDBEDREQTM 13:13 → EDBEDREQ 13:13 → 5EST 02-03 15:06
PROVIDERS: ADMIT Internal Medicine; ATTEND Internal Medicine
PROC: 00U207Z Supplement Dura Mater with Autologous Tissue Substitute, Open Approach (ICD-10-PCS; 2025-01-21)
PROC: 00C40ZZ Extirpation of Matter from Intracranial Subdural Space, Open Approach (ICD-10-PCS; 2025-01-21)
PROC: 30233N1 Transfusion of Nonautologous Red Blood Cells into Peripheral Vein, Percutaneous Approach (ICD-10-PCS; 2025-01-22)
PROC: 00C40ZZ Extirpation of Matter from Intracranial Subdural Space, Open Approach (ICD-10-PCS; principal; 2025-01-23)
PROC: 00U207Z Supplement Dura Mater with Autologous Tissue Substitute, Open Approach (ICD-10-PCS; 2025-01-23)
PROC: 02HV33Z Insertion of Infusion Device into Superior Vena Cava, Percutaneous Approach (ICD-10-PCS; 2025-01-23)
PROC: B548ZZA Ultrasonography of Superior Vena Cava, Guidance (ICD-10-PCS; 2025-01-23)
PROC: 5A1955Z Respiratory Ventilation, Greater than 96 Consecutive Hours (ICD-10-PCS; 2025-01-25)
PROC: 0BH17EZ Insertion of Endotracheal Airway into Trachea, Via Natural or Artificial Opening (ICD-10-PCS; 2025-01-25)
PROC: 0BH17EZ Insertion of Endotracheal Airway into Trachea, Via Natural or Artificial Opening (ICD-10-PCS; 2025-01-25)
PROC: 0B110F4 Bypass Trachea to Cutaneous with Tracheostomy Device, Open Approach (ICD-10-PCS; 2025-01-31)
DX: I62.01 Nontraumatic acute subdural hemorrhage (principal); A41.9 Sepsis, unspecified organism; G93.41 Metabolic encephalopathy; J96.01 Acute respiratory failure with hypoxia; N17.0 Acute kidney failure with tubular necrosis; E43 Unspecified severe protein-calorie malnutrition; E87.0 Hyperosmolality and hypernatremia; D68.59 Other primary thrombophilia; E46 Unspecified protein-calorie malnutrition; G81.91 Hemiplegia, unspecified affecting right dominant side; E87.4 Mixed disorder of acid-base balance; D62 Acute posthemorrhagic anemia; Z99.11 Dependence on respirator [ventilator] status; Z20.822 Contact with and (suspected) exposure to COVID-19; D50.9 Iron deficiency anemia, unspecified; E05.90 Thyrotoxicosis, unspecified without thyrotoxic crisis or storm; E78.5 Hyperlipidemia, unspecified; F03.90 Unspecified dementia, unspecified severity, without behavioral disturbance, psychotic disturbance, mood disturbance, and anxiety; E03.9 Hypothyroidism, unspecified; I16.0 Hypertensive urgency; E11.65 Type 2 diabetes mellitus with hyperglycemia; E86.0 Dehydration; I10 Essential (primary) hypertension; K52.9 Noninfective gastroenteritis and colitis, unspecified; K62.89 Other specified diseases of anus and rectum; G93.89 Other specified disorders of brain; D69.6 Thrombocytopenia, unspecified; R13.12 Dysphagia, oropharyngeal phase; E66.9 Obesity, unspecified; Z68.35 Body mass index [BMI] 35.0-35.9, adult; Z86.73 Personal history of transient ischemic attack (TIA), and cerebral infarction without residual deficits; Z79.4 Long term (current) use of insulin; Z79.899 Other long term (current) drug therapy; Z90.49 Acquired absence of other specified parts of digestive tract
CPT/HCPCS: 31500; 36415; 36573; 36600; 71045; 74176; 76700; 80048; 80053; 80061; 80076; 80202; 81003; 82375; 82550; 82553; 82607; 82728; 82746; 82805; 82962; 83036; 83540; 83550; 83735; 83880; 83930; 83970; 84100; 84145; 84300; 84439; 84443; 84478; 84484; 85014; 85018; 85025; 85027; 86256; 86671; 86850; 86900; 86920; 87015; 87045; 87070; 87426; 87427; 87449; 87804; 89055; 93005; 93970; 94002; 94003; 94070; 94640; 94664; 99291; A4606; A6261; C1725; C1758; C1893; J0360; J0690; J1100; J1580; J1815; J1953; J2003; J2004; J2185; J2250; J2270; J2405; J2470; J2543; J2704; J3010; J3370; J3490; J7030; J7050; J7131; P9016; C1713